=== PATIENT | male | born 1980 | race African-American/Black ===

== ENCOUNTER → 2019-01-21 | Outpatient (CLI) | payer BC ==
[~2019-01-21] MED LIST: KEPPRA 500 MG500 M1 PO
--- NOTE | ~2019-01-21 | EEG ---
[address] [address] EEG STUDY REPORT Name: YESENIA VIZCARRA Room: [facility]#: [id number] Admission: 01/21/19 Attend Phys: Onel Rivera MD Discharge: Date of : 76 Report #: [id number] THIS REPORT FOR: //name// CC: Zarina Rivera DATE OF SERVICE: 01/21/2019 This patient is being evaluated for seizure. EEG was done by placing the electrodes by standard 10-20 system of electrode placement. Both referential and sequential montages were used for recording. Background activity in this patient's EEG is about 11 Hz and 40 microvolt. This was a symmetrical activity. The patient went to sleep and that is associated with bilateral slowing and vertex sharp waves. Photic stimulation is unremarkable. Throughout the record, no active epileptiform activity was noticed. IMPRESSION: This patient's EEG is within normal limits. No active epileptiform activity was noticed. It might be mentioned that EEG can be normal in a patient with seizure disorder. Thank you very much for this referral. By: [id number] Rivera MD /nt
== END ==
LOC: M.MRI 12-14 11:54
DX: R56.9 Unspecified convulsions (principal); H70.91 Unspecified mastoiditis, right ear

== ENCOUNTER → 2019-01-30 | Outpatient (CLI) | payer BC | LOC: M.ULTRA 09:30 | DX: R10.13 Epigastric pain (principal) ==

== ENCOUNTER 2020-09-02 05:38 | Emergency (ER) | payer BC ==
[~2020-09-02] VITALS: Ht 175.3 cm; Wt 75.3 kg
[2020-09-02 06:30] LABS: URINE BILIRUBIN NEGATIVE (Negative); URINE BLOOD 3+ (Negative); URINE CLARITY CLEAR; URINE COLOR YELLOW; URINE GLUCOSE-RANDOM NEGATIVE (Negative); URINE KETONES NEGATIVE (Negative); URINE LEUKOCYTES-REFLEX NEGATIVE (Negative); URINE NITRITE-REFLEX NEGATIVE (Negative); URINE PROTEIN TRACE (Negative); URINE SPECIFIC GRAVITY >= 1.030 (1.005-1.030); URINE UROBILINOGEN 0.2 E.U./dl (0.2-1.0)
[2020-09-02 06:36] LABS: ABSOLUTE LYMPHOCYTES 1.4 thou/uL (0.8-5.3); ABSOLUTE MONOCYTES 0.6 thou/uL (0.0-1.2); ABSOLUTE NEUTROPHILS 4.4 thou/uL (1.6-8.1); BASOPHILS 0.4 %; EOSINOPHILS 0.5 %; HEMATOCRIT 45.3 % (42.0-52.0); HEMOGLOBIN 15.6 gm/dL (14.0-18.0); LYMPHOCYTES 21.5 %; MCH 31.2 pg (26.0-34.0); MCHC 34.4 g/dL (28.0-37.0); MCV 90.5 fL (80.0-100.0); MONOCYTES 9.7 %; MPV 7.6 fl. (7.2-11.1); NUCLEATED RBCS 0 /100WBC; PLATELET COUNT* 177 thou/uL (150-400); POLYS 67.9 %; RDW-CV 14.2 % (10.5-14.5); WBC 6.6 thou/uL (4.0-11.0)
[2020-09-02 06:40] LABS: BACTERIA-REFLEX 1-9 Few /HPF (None Seen); CASTS None Seen /LPF (None Seen); MUCUS >6 Heavy strn/LPF (None Seen); SQUAMOUS 0-3 Few /LPF (0-3); URINE WBC-REFLEX 0-5 Rare /HPF (0-5)
[2020-09-02 06:41] LABS: CRYSTALS None Seen /LPF (None Seen)
[2020-09-02 06:51] LABS: CALCIUM 8.8 mg/dL (8.5-10.1); CREATININE 1.4 mg/dL (0.6-1.3); POTASSIUM 3.7 mmol/L (3.5-5.1)
[2020-09-02 06:55] LABS: TOTAL BILIRUBIN 0.4 mg/dL (<0.1-1.0); TOTAL PROTEIN 7.1 g/dL (6.4-8.2)
[2020-09-02] MEDS ORDERED: NORCO 5-325 TA1 EAC2 PO (07:40)
[2020-09-02] MEDS ORDERED: FLOMAX0.4 MG PO (07:40)
[2020-09-02] MEDS ORDERED: ZOFRAN ODT4 MG DISSOLVE (07:40)
[2020-09-02] MEDS ORDERED: IBUPROFEN 800800 M1 PO (07:40)
[2020-09-02 08:30] VITALS: BP 107/61
== END 2020-09-02 08:30 | disposition home or self-care (01) ==
LOC: M.ERS 05:38
PROVIDERS: Family Medicine
DX: N20.0 Calculus of kidney (principal)